=== PATIENT | male | born 1945 | race Caucasian/White ===

== ENCOUNTER 2023-11-28 10:04 | Outpatient (CLI) | payer MEDICARE, SELFPAY ==
--- NOTE | 2023-11-28 10:39 | ECG_ITS ---
Test Date: 2023-11-28 11:00:36 Measurements Intervals [place] Rate: 53 P: 18 SD: 207 QRS: -32 QRSD: 143 T: -16 QT: 396 QTc: 374 Interpretive Statements SINUS BRADYCARDIA MARKED LEFT AXIS DEVIATION [QRS AXIS < -30] INTRAVENTRICULAR CONDUCTION DELAY [130+ ms QRS DURATION] No previous ECG available for comparison Electronically Signed On 11-28-2023 14:45:54 CDT by Melecio Abad M.D.
[2023-11-28 11:24] LABS: Anion Gap 8 mmol/L (4-12); Blood Urea Nitrogen 33 mg/dL (9-20); Carbon Dioxide 26 mmol/L (22-30); Chloride 105 mmol/L (98-107); Estimated Glomerular Filt Rate 29; Glucose 124 mg/dL (65-110); Potassium 4.3 mmol/L (3.4-5.0); Sodium 139 mmol/L (137-145)
[2023-11-28 11:26] LABS: INR 1.6; Prothrombin Time 20.1 Seconds (11.1-14.7)
[2023-11-28 11:27] LABS: Partial Thromboplastin Time 31.3 Seconds (22.3-36.8)
== END 2023-11-28 10:05 | disposition home or self-care (01) ==
PROVIDERS: Internal Medicine Nephrology; PCP Family Medicine; Visit Provider Urology
DX: Z01.818 Encounter for other preprocedural examination (principal); I12.9 Hypertensive chronic kidney disease with stage 1 through stage 4 chronic kidney disease, or unspecified chronic kidney disease; E21.1 Secondary hyperparathyroidism, not elsewhere classified; N18.32 Chronic kidney disease, stage 3b; N20.0 Calculus of kidney; R00.1 Bradycardia, unspecified
CPT/HCPCS: 36415; 80048; 85610; 85730; 87077; 87086; 87186; 93005

== ENCOUNTER 2023-12-04 02:03 | Day surgery (SDC) | payer MEDICARE, SELFPAY ==
[2023-11-27 14:29] VITALS: BMI 50.4
--- NOTE | 2023-11-27 15:02 | PC.NURSE ---
Report to the Outpatient Waiting Room, entrance under the green pavilion located off [facility], at time _6:00AM_ on date _12/04/23_. Planned Procedure Time: ___7:30AM .? Time changes happen often and if your time is changed the preop area will call you the afternoon before. - You and your visitor will be asked to self-screen and do not enter if you have any COVID symptoms. Please call surgeon if you need to reschedule. - A mask is optional within the hospital at this time. Patients may have clear liquids (water, carbonated beverages, clear teas, apple juice) until 3 hours prior to surgery with a maximum of 20 ounces. - No food from midnight until time of surgery and no smoking. Take only the following medications with a SIP of water on the morning of surgery: ___LEVOTHYROXINE & METOPROLOL DO NOT STOP ANY OF YOUR OTHER PRESCRIPTION MEDICATIONS PRIOR TO SURGERY EXCEPT THE FOLLOWING Medications to discontinue per physician HOLD COUMADIN PER DR GARAY(PT SEEING PCP TODAY TO OK BEING OFF COUMADIN PRIOR TO SURGERY) HOLD ALL VITAMINS/SUPPLEMENTS 3 DAYS PRE-OP PER ANESTHESIA- LAST DOSE 11/30/23 Please no make-up, nail lao, hairspray, perfume, deodorant, or body powder the day of surgery.? No jewelry (including any body piercings) or valuables the day of surgery, leave them at home.? Please take a shower or bath the night before, or the morning of, surgery with an antibacterial soap.? Wear comfortable, loose fitting clothing.? - Jewelry must be removed prior to entering the operating room.? Rings and piercings that are not removed may be cut off. - The hospital will not accept responsibility for valuables.? - Please leave all valuables, including medications, at home the day of surgery. If you are going home after surgery, a licensed mobile lounge driver or operator must drive you home.? - NO public transportation without another adult if you receive anesthesia. - We recommend that an adult stay with you for 24 hours following discharge. - We also recommend that you do not drive, make important decision, drink alcoholic beverages, or take any drugs that were not prescribed by your health care provider for at least 24 hours after your discharge time. Follow any additional instructions given to you from your surgeon. Telephone instructions given to ___PATIENT and asked if any additional questions and then verbalized understanding. Patient advised to call surgeon office or pre surgery nurse liaison [phone] if any additional questions.
--- NOTE | 2023-12-03 10:59 | WPDANESEPPF ---
Anes - Initial Pre Proc Eval Procedure: Operation Date: 12/04/23 07:30 Proposed Procedures p Left Extracorporeal Shock Wave Lithotripsy, - Maximilian Quiros MD s Cystoscopy - Maximilian Quiros MD Date/Time: 12/03/23 10:59 Surgeon: Maximilian Quiros MD Pre Op Diagnosis: gross hematuria, left renal stone Patient Data Age: 78 Gender: M Height: 1.75 m Weight: 155 kg Allergies Allergy/AdvReac Type Severity Reaction Status Date / Time No Known Allergies Allergy Verified 11/27/23 14:20 Home Medications Medication Instructions Recorded Confirmed Type atorvastatin 80 mg tablet 80 mg PO DAILY 02/14/19 11/27/23 History folic acid 800 mcg tablet 0.8 mg PO DAILY 02/14/19 11/27/23 History levothyroxine 150 mcg tablet 150 mcg PO DAILY 02/14/19 11/27/23 History tamsulosin 0.4 mg capsule 0.4 mg PO DAILY 02/14/19 11/27/23 History allopurinol 100 mg tablet 100 mg PO BID 07/09/22 11/27/23 History ferrous sulfate 325 mg (65 mg 325 mg PO DAILY 07/09/22 11/27/23 History iron) tablet,delayed release glipizide 10 mg tablet 10 mg PO DAILY 07/09/22 11/27/23 History metoprolol tartrate 50 mg tablet 25 mg PO BID 11/19/22 11/27/23 History furosemide 20 mg tablet 20 mg PO .COMPLEX #135 tabs 10/28/23 11/27/23 Rx finasteride 5 mg tablet 5 mg PO HS 11/27/23 11/27/23 History levothyroxine 25 mcg tablet 25 mcg PO QAM 11/27/23 11/27/23 History warfarin 1 mg tablet 1 mg PO DIRECTED 11/27/23 11/27/23 History warfarin 2 mg tablet 2 mg PO DIRECTED 11/27/23 11/27/23 History Patient hx anesthesia problems: none Family hx anesthesia problems: none Results Review: All pre-operative results and documents have been reviewed as part of the pre-operative evaluation. [facility] Past Medical History Medical History (Updated 12/03/23 @ 11:00 by Yadiel Felton DO) Chronic kidney disease, unspecified History of pulmonary embolus (PE) Hyperlipidemia Hypertension Hypothyroidism Kidney disease [place] (obstructive sleep apnea) Sleep apnea Surgical History Surgical History (Updated 12/03/23 @ 11:00 by Yadiel Felton DO) History of ankle surgery History of embolic filter insertion S/P IVC filter Social History Social History Smoking status: Never smoker Alcohol intake: never Substance use: never Do You Feel Safe in your Home?: Yes Lack of Transportation: No Lack of Food: Never True Current Housing: I Have Housing Concerned About Future Housing: No Difficulty Paying Gas/Electric Bills: No Difficulty Paying for Meds: No Currently Unemployed: No Education: Associate Degree Difficulty w/ Childcare or Family Care: No Living arrangements: with family Additional living arrangements comments: [facility]IRLFRIEND Gender identity (if verbalized by the patient): Male Spiritual care concerns: No Anes - Eval Final PreProcedure Day of Procedure 12/03/23 10:59 Patient weight: super morbidly obese Heart: regular rate and rhythm Lungs: clear to auscultation Airway: Mallampati scale class 1 Neurological: alert and oriented Last oral intake: >/= 8 hours ASA classification: IV Emergent: no Anesthetic plan: proceed Anesthesia type and monitoring: general LMA and standard monitoring Results Review: All pre-operative results and documents have been reviewed as part of the pre-operative evaluation. Informed Consent: The patient's anesthetic plan and its attendant risks and benefits were discussed with the patient/family/POA. Questions were solicited and answers provided to the satisfaction of the patient/family/POA.
[2023-12-04] VITALS (7 sets, daily range): BP systolic 127–170; BP diastolic 53–104; PULSE 49–63; RESP 12–18; TEMP 36.1–36.7; O2SAT 97–100
--- NOTE | ~2023-12-04 | XR_ITS ---
Supine and upright views of the abdomen Clinical history: Lithotripsy COMPARISON: 04/13/2007 Findings: Bowel gas pattern is nonspecific. No evidence for obstruction or free air. Multiple round c alcifications in the right upper quadrant could reflect gallstones versus possibly gallstones. Suspec rui 5 mm left renal stone.. IVC filter in place. Osseous structures are intact. Impression: Probable 5 mm left renal stone. Suspected right upper quadrant gallstones versus possibly renal stones. Reviewed, dictated and finalized at location . Impression: Probable 5 mm left renal stone. Suspected right upper quadrant gallstones versus possibly renal stones.
[2023-12-04] MEDS: LACTATED RINGERS 1,000 ML 30 ML IV CONT (06:45)
[2023-12-04 06:50] LABS: Glucose Point of Care 118 mg/dl (65-105)
[2023-12-04 07:02] LABS: INR 1.2; Partial Thromboplastin Time 24.9 Seconds (22.3-36.8); Prothrombin Time 15.4 Seconds (11.1-14.7)
--- NOTE | 2023-12-04 07:32 | WPDHPUPDATE1 ---
History and Physical Update Update Date/Time: 12/04/23 07:32 History and Physical has been reviewed, including an updated exam of the patient. There are NO changes in the patient's condition. Risks, benefits, and alternatives have been discussed and questions answered. Patient agrees to proceed with procedure.
--- NOTE | 2023-12-04 07:38 | SUR.PREOP ---
PT 15.4 TODAY DOWN FROM 20.1; PT OFF COUMADIN SINCE 11/30/23; DR. GARAY AWARE.
[2023-12-04] MEDS: ceFAZolin 3 GM/D5W 100 ML 100 ML IVPB (07:39)
[2023-12-04] MEDS: LIDOCAINE HCL 2% GEL UROJET 10 ML PKG MUCOUS MEM (07:56)
--- NOTE | 2023-12-04 08:36 | W.PM.PROC2 ---
Procedure Note - Detailed Date of Procedure 12/04/23 Pre-op Diagnosis Gross hematuria, left renal stone Post-op Diagnosis Same Procedure Performed Flexible cystoscopy, left ESWL Surgeon Maximilian Quiros MD Anesthesia General Description of Procedure The patient was brought to the operative suite where he was placed in the supine position on the Dornier lithotripter table. Flexible cystoscopy was undertaken with a 16F flexible cystoscopy. There were no urethral strictures. The prostatic urethra estimated length was 2.0cm. There was no obstruction of the prostatic urethra with no median lobe enlargement. The bladder mucosa was normal and there was a single, orthotopic ureteral orifice bilaterally. The patient was then repositioned in the supine position with the focal point of the lithotriptor on a 5-6mm left renal calculus. A total of 2500 shocks were delivered at a power setting of 5. There appeared to be good fragmentation of the stone. The patient tolerated the procedure well and was taken to the recovery room in good condition. Complications No immediate complications Condition Stable Disposition PACU
[2023-12-04 08:50] LABS: Glucose Point of Care 130 mg/dl (65-105)
== END 2023-12-04 10:38 | disposition home or self-care (01) ==
PROVIDERS: PCP Family Medicine; Visit Provider Urology
PROC: (CPT 50590; principal; 2023-12-04 07:30)
PROC: 0TJB8ZZ Inspection of Bladder, Via Natural or Artificial Opening Endoscopic (ICD-10-PCS; CPT 52000; 2023-12-04 07:30)
DX: N20.0 Calculus of kidney (principal); I12.9 Hypertensive chronic kidney disease with stage 1 through stage 4 chronic kidney disease, or unspecified chronic kidney disease; N18.9 Chronic kidney disease, unspecified; E78.5 Hyperlipidemia, unspecified; E03.9 Hypothyroidism, unspecified; G47.33 Obstructive sleep apnea (adult) (pediatric); Z79.01 Long term (current) use of anticoagulants; Z86.711 Personal history of pulmonary embolism; E66.01 Morbid (severe) obesity due to excess calories; Z68.43 Body mass index [BMI] 50.0-59.9, adult
CPT/HCPCS: 52000; 50590; 36415; 74018; 80048; 82948; 85610; 85730; 87077; 87086; 87186; 93005; J0690; J2405; J2704; J3010; J7030; J7120

== ENCOUNTER 2023-12-11 09:01 | Outpatient (CLI) | payer MEDICARE, SELFPAY ==
--- NOTE | ~2023-12-11 | XR_ITS ---
EXAMINATION: XR abdomen/kub 1V DATE: 12/11/2023 09:22 INDICATION: Calculus of kidney. TECHNIQUE: A supine view of the abdomen on 2 radiographs was obtained. COMPARISON: Abdomen radiographs 12/04/2023, 04/13/2007 FINDINGS: Calcifications in right upper quadrant are probably gallstones. There is a 5 mm stone in le ft kidney. Pelvic calcifications may be phleboliths and/or prostatic calcifications. IMPRESSION: 1. 5 mm stone in left kidney. 2. Right upper quadrant calcifications, probably gallstones. Reviewed, dictated and finalized at location A.
== END 2023-12-11 09:02 | disposition home or self-care (01) ==
LOC: ANHIMG 09:06
PROVIDERS: PCP Family Medicine; Visit Provider Urology
DX: N20.0 Calculus of kidney (principal)
CPT/HCPCS: 74018

== ENCOUNTER 2024-06-14 10:17 | Outpatient (CLI) | payer MEDICARE, SELFPAY ==
--- NOTE | ~2024-06-14 | XR_ITS ---
XR abdomen/kub 1V Ordering provider: Maximilian Quiros MD History: . kidney stone lt side, CHECK UP AFTER SURGERY . Comparison: None. FINDINGS: BOWEL: Nonobstructive bowel gas pattern. ORGANOMEGALY: None. SIGNIFICANT PATHOLOGIC CALCIFICATIONS: Calcifications in the right upper quadrant which may be gallst ones. OTHER: No free air is seen under the diaphragm. Degenerative changes of the spine. Bilateral hip severe osteoarthritic changes. Bilateral sacroiliacs . Pubic symphysitis. IMPRESSION: NO ACUTE ABDOMINAL FINDINGS. Calcifications in the right upper quadrant which may be stones. Reviewed, dictated and finalized at location A.
== END 2024-06-14 10:18 | disposition home or self-care (01) ==
PROVIDERS: PCP Family Medicine; Visit Provider Urology
DX: N20.0 Calculus of kidney (principal)
CPT/HCPCS: 74018